=== PATIENT | female | born 1955 ===

== ENCOUNTER 2021-05-23 08:48 | Day surgery (SDC) | payer OTHER ==
[~2021-05-23 08:48] MED LIST: ECOTRIN81 MG PO; ISOSORBIDE MONO60 MG PO; LOSARTAN POTASS50 MG PO; SYNTHROID125 MCG PO; ZETIA10 MG PO
[2021-05-23] MEDS ORDERED: IBU600 MG PO (09:40)
== END 2021-05-23 13:50 | disposition home or self-care (01) ==
LOC: CIR.AMB 08:48
PROVIDERS: ATTEND Obstetrics & Gynecology Gynecology
DX: N95.0 Postmenopausal bleeding (principal); Z88.0 Allergy status to penicillin; Z91.013 Allergy to seafood; I25.10 Atherosclerotic heart disease of native coronary artery without angina pectoris; I10 Essential (primary) hypertension; I25.2 Old myocardial infarction; J45.909 Unspecified asthma, uncomplicated; E03.9 Hypothyroidism, unspecified; Z79.82 Long term (current) use of aspirin; Z20.822 Contact with and (suspected) exposure to COVID-19